=== PATIENT | male | born 1995 | race Caucasian/White ===

== ENCOUNTER 2020-11-09 12:53 | Inpatient (IN) | payer BC, SELFPAY ==
[2020-11-09 13:31] LABS: #Lymphocytes 0.8 thou/uL (1.20-3.40); #Monocytes 0.4 thou/uL (0.11-0.59); %Basophils 0.2 % (0.0-1.0); %Eosinophils 0.1 % (0.0-10.0); %Monocytes 5.1 % (0.0-10.0); %Neutrophils 83.7 % (42.0-75.0); Hemoglobin 14.3 g/dL (14.0-18.0); Mean Corpuscular HGB CONC 33.2 g/dL (32.0-36.0); Mean Corpuscular Hemoglobin 30.8 pg (27.0-31.0); Mean Platelet Volume 7.5 fL (7.4-10.4); Platelet Count 193 thou/uL (130-400); RBC Distribution Width 12.1 % (11.5-14.5); Red Blood Cell (RBC) Count 4.63 mill/uL (4.70-6.10); White Blood Cell (WBC) Count 7.2 thou/uL (4.8-10.8)
[2020-11-09] MEDS ORDERED: Iopamidol-370 76% 500 ML 1 ML ONE (13:53)
[2020-11-09 13:57] LABS: ALT (SGPT) 27 U/L (8-55); AST (SGOT) 43 U/L (5-34); Albumin 3.6 g/dL (3.5-5.0); Alkaline Phosphatase 43 U/L (40-110); Anion Gap 12 mmol/L (10-20); BUN (Urea Nitrogen) 13 mg/dL (8.9-20.6); Bilirubin, Total 0.5 mg/dL (0.2-1.2); Calc. Creatinine Clearance 0 mL/min (70-130); Calcium 8.1 mg/dL (7.8-10.44); Carbon Dioxide 30 mmol/L (22-29); Chloride 98 mmol/L (98-107); Glucose 138 mg/dL (70-105); Potassium 3.5 mmol/L (3.5-5.1); Protein, Total 6.6 g/dL (6.0-8.3); Sodium 136 mmol/L (136-145)
--- NOTE | 2020-11-09 14:40 | RAD ---
PORTABLE CHEST: HISTORY: COVID positive. States symptoms are getting worse. FINDINGS: Heart size within normal limits. Extensive bilateral lung infiltrates are present, more right-sided. IMPRESSION: Multifocal pneumonia consistent with COVID. POS: [place]
[2020-11-09] MEDS ORDERED: Dexamethasone 10 MG/ML VIAL ONE (14:56)
[2020-11-09] MEDS ORDERED: HYDROcodone/Acetaminophen 5/325 mg Tablet PO PRN (17:40)
[2020-11-09] MEDS ORDERED: Senokot S 8.6-50 MG TAB PO PRN (17:40)
[2020-11-09] MEDS ORDERED: Acetaminophen 325 MG TAB PO PRN (17:40)
[2020-11-09] MEDS ORDERED: Ondansetron ODT 4 MG TAB PO PRN (17:40)
[2020-11-09] MEDS ORDERED: Melatonin 3 MG TAB PO PRN (17:44)
--- NOTE | 2020-11-09 17:49 | CT ---
CT angiogram chest: 11/09/2020 COMPARISON: None HISTORY: Covid positive patient with worsening symptoms TECHNIQUE: Axial CT imaging at 2.5 mm intervals through the chest with IV contrast using CT angiogram protocol. Coronal and sagittal 3-D reformatted imaging obtained. FINDINGS: Partially visualized spleen is enlarged, measuring 14.3 cm in AP dimension. Imaged upper ab domen grossly unremarkable otherwise. No pleural, pericardial, or mediastinal fluid is noted. No axillary lymphadenopathy. There are enlarged mediastinal lymph nodes including a 1.2 cm prevascula r node, a superior mediastinal left paratracheal node measuring 1.6 cm, and subcarinal adenopathy measuring up to 1.2 cm. Motion artifact and suboptimal opacification limits detailed assessment of the pulmonary arterial vas culature. The distal pulmonary arterial branches are poorly assessed. No obvious central pulmonary arterial embolism. There is extensive severe multifocal peripheral and central groundglass alveolar opacity within both lungs diffusely highly suspicious for extensive bilateral Covid pneumonia. No endobronchial lesion is evident. No acute osseous abnormality. IMPRESSION: Severe extensive multifocal bilateral airspace disease concerning for prominent diffuse b ilateral Covid pneumonia. Evaluation for pulmonary arterial embolism is quite limited. No central pulmonary arterial embolism noted. Mediastinal adenopathy is noted, likely reactive in nature. Nonspe cific splenomegaly.
[2020-11-09 18:17] VITALS: BMI 46.7
[2020-11-09] MEDS: cefTRIAXone\\ROCEPHIN 1 GM in Sodium Chloride 0.9% 100 ML IVPB SCH (18:23)
--- NOTE | 2020-11-09 18:36 | HP ---
CHIEF COMPLAINT: Shortness of breath, cough. HISTORY OF PRESENT ILLNESS: A 25-year-old young obese male without significant past medical history, had COVID symptoms, started on November 01 and tested positive on . He got worsening of his hypoxia. Initially, he was tachycardic with pulse of 120. D-dimer is elevated at 0.7. Chest x-ray marked typical of COVID pneumonia with a multifocal bilateral infiltrate. Currently, CT angio is pending. He will be brought in for COVID management. REVIEW OF SYSTEMS: The patient had some subjective fevers since the . Otherwise, no chest pain. He has no nausea, vomiting, abdominal pain, constipation, diarrhea, hematuria, dysuria, hematochezia. Denies headache, tingling, numbness in his extremities. No blurriness. No polyuria or polydipsia. Rest of the review of systems are negative. PAST MEDICAL HISTORY: None. PAST SURGICAL HISTORY: None. ALLERGIES: HE HAS NO KNOWN DRUG ALLERGY. MEDICATIONS: None. SOCIAL HISTORY: The patient does not drink or smoke. FAMILY HISTORY: Noncontributory. PHYSICAL EXAMINATION: VITAL SIGNS: He is afebrile, normotensive. Sats around 95% with 3 L oxygen by nasal cannula. GENERAL: The patient is alert, oriented, but he is coughing quite a bit and he is not toxic looking. HEENT: Pupils are equal, round, and reactive to light. Anicteric. Mucous membranes moist. CARDIOVASCULAR: Regular rate and rhythm without murmurs, rubs, or gallops. LUNGS: Clear to auscultation bilaterally without wheezing, rales, or rhonchi. ABDOMEN: Soft, nontender, and protuberant, but good bowel sounds. EXTREMITIES: I did not appreciate any pitting edema or rash. NEUROLOGIC: No focal deficits. DIAGNOSTIC DATA: His CBC in the normal range. D-dimer 0.76. His chemistry panel; creatinine 0.93, bicarb is 30. Otherwise, rest of the CMP panel in the normal range. Chest x-ray, bilateral focal infiltrate. CT angiogram just showed up severe extensive multifocal bilateral airspace disease concerning for prominent bilateral COVID pneumonia. They are not able to visualize the pulmonary artery clearly; however, it appears that there is no embolism. Mediastinal adenopathy is noted. IMPRESSION AND PLAN: This is a 25-year-old obese male with a past medical history, presenting with: 1. Coronavirus disease with pneumonia. 2. Start him on Decadron, vitamins as well as zinc. Bronchodilators as needed. We will follow the inflammatory markers. Lovenox b.i.d. dose. I talked to the pharmacist regarding remdesivir. It is almost 9 days since his symptoms started. Please follow on that. Job ID: [id number] MTDD
[2020-11-09] MEDS: guaiFENesin 200 MG TAB PO SCH ×2 (18:53→22:41)
[2020-11-09] MEDS: Albuterol 200 PUFF (6.7GM INHALER) INH SCH (18:53)
[2020-11-09] MEDS ORDERED: REMDESIVIR (EUA) 200 MG in Sodium Chloride 0.9% 250 ML 210 ML IV SCH (20:00)
[2020-11-09] MEDS: Enoxaparin Sodium 40 MG/0.4 ML SYRINGE SC SCH (21:10)
[2020-11-09] MEDS: Montelukast Sodium 10 mg Tablet PO SCH (21:11)
[2020-11-10] MEDS: Albuterol 200 PUFF (6.7GM INHALER) INH SCH ×4 (00:39→18:11)
[2020-11-10] MEDS: guaiFENesin 200 MG TAB PO SCH ×6 (06:00→20:20)
[2020-11-10 06:52] LABS: #Lymphocytes 0.6 thou/uL (1.20-3.40); #Monocytes 0.5 thou/uL (0.11-0.59); %Eosinophils 0.1 % (0.0-10.0); %Lymphocytes 9.9 % (21.0-51.0); %Monocytes 7.7 % (0.0-10.0); %Neutrophils 82.3 % (42.0-75.0); Hemoglobin 14.2 g/dL (14.0-18.0); Mean Corpuscular HGB CONC 33.3 g/dL (32.0-36.0); Mean Corpuscular Hemoglobin 31.4 pg (27.0-31.0); Mean Corpuscular Volume 94.2 fL (78.0-98.0); Mean Platelet Volume 7.2 fL (7.4-10.4); Platelet Count 205 thou/uL (130-400); RBC Distribution Width 12.2 % (11.5-14.5); Red Blood Cell (RBC) Count 4.52 mill/uL (4.70-6.10)
[2020-11-10 07:07] LABS: Anion Gap 14 mmol/L (10-20); BUN (Urea Nitrogen) 13 mg/dL (8.9-20.6); Calc. Creatinine Clearance 385 mL/min (70-130); Calcium 8.1 mg/dL (7.8-10.44); Carbon Dioxide 27 mmol/L (22-29); Chloride 101 mmol/L (98-107); Glucose 130 mg/dL (70-105); Potassium 4.1 mmol/L (3.5-5.1); Sodium 138 mmol/L (136-145)
[2020-11-10] MEDS: Dexamethasone 4 mg/ml Vial SLOW IVP SCH (08:26)
[2020-11-10] MEDS: Cholecalciferol 1,000 UNITS (25 MCG) TAB PO SCH (08:29)
[2020-11-10] MEDS: Ascorbic Acid 500 mg Chewable Tablet PO SCH (08:29)
[2020-11-10] MEDS: Zinc Sulfate 220 MG CAP PO SCH (08:29)
[2020-11-10] MEDS: Enoxaparin Sodium 40 MG/0.4 ML SYRINGE SC SCH (08:30)
[2020-11-10] MEDS: Azithromycin 250 MG TAB PO SCH (08:30)
[2020-11-10] MEDS ORDERED: Ondansetron PF 4 MG/2 ML Vial IVP PRN (08:37)
[2020-11-10] MEDS ORDERED: Cepastat Lozenges 1 LOZ PO PRN (08:37)
[2020-11-10] MEDS ORDERED: Loratadine 10 MG TAB PO PRN (08:37)
[2020-11-10] MEDS ORDERED: Sodium Chloride 0.65% Nasal 44 ML BOT EA NARE PRN (08:37)
[2020-11-10] MEDS ORDERED: Loperamide HCl 2 MG CAP PO PRN (08:37)
[2020-11-10] MEDS ORDERED: Calcium Carbonate 500 MG ChewTAB PO PRN (08:37)
[2020-11-10] MEDS ORDERED: hydrALAZINE 20 MG/ML VIAL SLOW IVP PRN (08:37)
[2020-11-10] MEDS ORDERED: FLU VACC QS2020-21(6MOS UP)/PF 60 MCG/0.5 ML SYRINGE IM ONE (09:00)
--- NOTE | 2020-11-10 12:19 | PDOC.HOSPP ---
- Subjective Encounter Date: 11/10/20 Encounter Time: 09:00 Subjective: Patient was on facemask oxygen with 15 L and he was saturating only 85%, we have changed to high flow oxygen, initially patient was not liking high flow oxygen but now he agreed to stay on it - Objective Vital Signs & Weight: Vital Signs (12 hours) Pulse Ox 11/10/20 08:00 91 L Weight Weight 345 lb 0.3 oz I&O: 11/09/20 11/10/20 11/11/20 06:59 06:59 06:59 Intake Total 240 Output Total 600 Balance -600 240 Result Diagrams: 11/10/20 06:33 11/10/20 06:33 Radiology Reviewed by me: Yes EKG Reviewed by me: Yes Hospitalist ROS - Review of Systems Constitutional: reports: weakness, malaise Eyes: denies: pain, vision change, conjunctivae inflammation, eyelid inflammation, redness, other ENT: denies: ear pain, ear discharge, nose pain, nose discharge, nose congestion , mouth pain, mouth swelling, throat pain, throat swelling, other Respiratory: reports: cough, shortness of breath, SOB with excertion. denies: dry, hemoptysis, pleuritic pain, sputum, wheezing, other Cardiovascular: denies: chest pain, palpitations, orthopnea, paroxysmal noc. dyspnea, edema, light headedness, other Gastrointestinal: denies: nausea, vomiting, abdominal pain, diarrhea, constipation, melena, hematochezia, other Genitourinary: denies: dysuria, frequency, incontinence, hematuria, retention, other Musculoskeletal: denies: neck pain, shoulder pain, arm pain, back pain, hand pain, leg pain, foot pain, other Skin: denies: rash, lesions, coni, bruising, other - Medication Medications: Active Medications Generic Name Dose Route Start Last Admin Trade Name Freq PRN Reason Stop Dose Admin Acetaminophen 650 mg 11/09/20 17:40 11/09/20 18:23 Acetaminophen 325 Mg Tab PO 650 mg Q4H PRN Administration Headache/Fever/Mild Pain (1-3) Albuterol Sulfate 2 puff 11/09/20 19:00 11/10/20 08:30 Albuterol 200 Puff (6.7gm Inhaler) INH 2 puff [id number] JOHN Administration Ascorbic Acid 1,000 mg 11/10/20 09:00 11/10/20 08:29 Ascorbic Acid 500 Mg Chewable Tablet PO 1,000 mg DAILY JOHN Administration Azithromycin 500 mg 11/10/20 09:00 11/10/20 08:30 Azithromycin 250 Mg Tab PO 500 mg DAILY JOHN Administration Cholecalciferol 2,000 units 11/10/20 09:00 11/10/20 08:29 Cholecalciferol 1,000 Units (25 Mcg) Tab PO 2,000 units DAILY JOHN Administration Dexamethasone 6 mg 11/10/20 09:00 11/10/20 08:26 Dexamethasone 4 Mg/Ml Vial SLOW IVP 6 mg DAILY JOHN Administration Enoxaparin Sodium 40 mg 11/09/20 21:00 11/10/20 08:30 Enoxaparin Sodium 40 Mg/0.4 Ml Syringe SC 40 mg BID JOHN Administration Guaifenesin 400 mg 11/09/20 18:00 11/10/20 09:12 Guaifenesin 200 Mg Tab PO 11/11/20 18:01 400 mg Q4H JOHN Administration Ceftriaxone Sodium 1 gm/ 100 mls @ 200 mls/hr 11/09/20 18:00 11/09/20 18:23 Sodium Chloride IVPB 100 mls Q24HR JOHN Administration Montelukast Sodium 10 mg 11/09/20 21:00 11/09/20 21:11 Montelukast Sodium 10 Mg Tablet PO 10 mg QPM JOHN Administration Zinc Sulfate 220 mg 11/10/20 09:00 11/10/20 08:29 Zinc Sulfate 220 Mg Cap PO 220 mg DAILY JOHN Administration - Exam General Appearance: NAD, awake alert Eye: PERRL, anicteric sclera ENT: normocephalic atraumatic, no oropharyngeal lesions Neck: supple, symmetric, no JVD, no thyromegaly Heart: RRR, no murmur, no gallops, no rubs Respiratory - other findings: Morbid obesity limiting examination, air entry reduced at base, coarse ana Gastrointestinal: soft, non-tender, non-distended, normal bowel sounds Gastrointestinal - other findings: Morbid obesity noted Extremities: no cyanosis, no clubbing, no edema Skin: normal turgor, no lesions Neurological: no focal deficits Musculoskeletal: normal tone, normal strength Psychiatric: normal affect, normal behavior Hosp A/P (1) Acute respiratory failure due to COVID-19 Code(s): U07.1 - COVID-19; J96.00 - ACUTE RESPIRATORY FAILURE, UNSP W HYPOXIA OR HYPERCAPNIA Status: Acute (2) Pneumonia due to 2019 novel coronavirus Code(s): U07.1 - COVID-19; J12.82 - PNEUMONIA DUE TO CORONAVIRUS DISEASE 2019 Status: Acute (3) Morbid obesity with BMI of 45.0-49.9, adult Code(s): E66.01 - MORBID (SEVERE) OBESITY DUE TO EXCESS CALORIES; Z68.42 - BODY MASS INDEX [BMI] 45.0-49.9, ADULT Status: Chronic - Plan old records reviewed/req, plan discussed w/ family, respiratory therapy, DVT proph w/lovenox Continue remdesivir as per protocol Continue dexamethasone Continue vitamin supplementation Continue high flow oxygen Patient has high chances of worsening so we will closely monitor, will also consult pulmonology for evaluation I have updated patient's mother about his condition
--- NOTE | 2020-11-10 15:53 | CON ---
DATE OF CONSULTATION: 11/10/2020 CONSULTING PHYSICIAN: Daniel Dotson MD REASON FOR CONSULTATION: COVID-19 pneumonia. HISTORY OF PRESENT ILLNESS: Mr. Blanco is a 25-year-old male, who was hospitalized yesterday with increasing shortness of breath related to COVID-19 pneumonia. I believe, he had symptoms first on November 01, tested positive on November 02. His comorbid risk factors include obesity. PAST MEDICAL HISTORY: Unremarkable. PAST SURGICAL HISTORY: Unremarkable. ALLERGIES: NONE. MEDICATIONS: Prior to admission, none. SOCIAL HISTORY: He works for the [employer]. Does not smoke. Does not drink. FAMILY MEDICAL HISTORY: Unremarkable. REVIEW OF SYSTEMS: Remarkable for dry cough and fever. Otherwise, negative. PHYSICAL EXAMINATION: VITAL SIGNS: O2 saturation 89% on 50% high-flow oxygen; temperature 98.7, it has been as high as 103.0; pulse 88; and respirations 20. GENERAL: He is a morbidly obese male, in no acute distress. He speaks without much difficulty. HEENT: Unremarkable. NECK: No JVD. LUNGS: Inspiratory crackles bilaterally. CARDIAC: S1 and S2. Regular. ABDOMEN: Soft. EXTREMITIES: No edema. LABORATORY DATA: White blood cell count 6, hematocrit 42.5, and platelet count 205. D-dimer 0.52. Sodium 138, potassium 4.1, BUN 13, creatinine 0.6, and glucose 130. C-reactive protein 9.9. I have reviewed his CT and chest x-ray shows diffuse infiltrates. ASSESSMENT: 1. COVID-19 pneumonia. 2. Acute hypoxic respiratory failure. PLAN: 1. I have reviewed the orders. I agree with remdesivir, steroids. I would increase his anticoagulation to a more therapeutic dose. Eliquis would probably be a better choice. 2. Continue high-flow oxygen. 3. I would anticipate him being in the hospital for another week to 10 days. Job ID: [id number]
[2020-11-10] MEDS: cefTRIAXone\\ROCEPHIN 1 GM in Sodium Chloride 0.9% 100 ML IVPB SCH (18:11)
[2020-11-10] MEDS: Apixaban 5 MG TAB PO SCH (20:20)
[2020-11-10] MEDS: Montelukast Sodium 10 mg Tablet PO SCH (20:20)
[2020-11-10] MEDS: REMDESIVIR (EUA) 100 MG in Sodium Chloride 0.9% 250 ML 230 ML IV SCH (21:55)
[2020-11-11] MEDS: Zolpidem Tartrate 5 MG TAB PO PRN (00:12)
[2020-11-11] MEDS: Albuterol 200 PUFF (6.7GM INHALER) INH SCH ×4 (00:12→18:01)
[2020-11-11] MEDS: guaiFENesin 200 MG TAB PO SCH ×5 (01:32→17:54)
[2020-11-11 06:34] LABS: #Lymphocytes 0.7 thou/uL (1.20-3.40); #Monocytes 0.9 thou/uL (0.11-0.59); #Neutrophils 4.6 thou/uL (1.40-6.50); %Basophils 0.1 % (0.0-1.0); %Eosinophils 0.2 % (0.0-10.0); %Lymphocytes 11.2 % (21.0-51.0); %Monocytes 14.6 % (0.0-10.0); %Neutrophils 73.9 % (42.0-75.0); Hemoglobin 13.9 g/dL (14.0-18.0); Mean Corpuscular HGB CONC 33.7 g/dL (32.0-36.0); Mean Corpuscular Hemoglobin 31.3 pg (27.0-31.0); Mean Corpuscular Volume 93.1 fL (78.0-98.0); Mean Platelet Volume 7.5 fL (7.4-10.4); Platelet Count 276 thou/uL (130-400); RBC Distribution Width 11.9 % (11.5-14.5); Red Blood Cell (RBC) Count 4.45 mill/uL (4.70-6.10); White Blood Cell (WBC) Count 6.3 thou/uL (4.8-10.8)
[2020-11-11 06:59] LABS: ALT (SGPT) 53 U/L (8-55); AST (SGOT) 46 U/L (5-34); Albumin 3.4 g/dL (3.5-5.0); Alkaline Phosphatase 38 U/L (40-110); Anion Gap 15 mmol/L (10-20); BUN (Urea Nitrogen) 18 mg/dL (8.9-20.6); Bilirubin, Total 0.4 mg/dL (0.2-1.2); Calc. Creatinine Clearance 348 mL/min (70-130); Calcium 8.1 mg/dL (7.8-10.44); Carbon Dioxide 30 mmol/L (22-29); Chloride 101 mmol/L (98-107); Globulin 2.8 g/dL (2.4-3.5); Glucose 134 mg/dL (70-105); Potassium 4.1 mmol/L (3.5-5.1); Protein, Total 6.2 g/dL (6.0-8.3); Sodium 142 mmol/L (136-145)
[2020-11-11] MEDS: Ascorbic Acid 500 mg Chewable Tablet PO SCH (08:42)
[2020-11-11] MEDS: Zinc Sulfate 220 MG CAP PO SCH (08:42)
[2020-11-11] MEDS: Dexamethasone 4 mg/ml Vial SLOW IVP SCH (08:42)
[2020-11-11] MEDS: Apixaban 5 MG TAB PO SCH ×2 (08:43→20:05)
[2020-11-11] MEDS: Azithromycin 250 MG TAB PO SCH (08:43)
[2020-11-11] MEDS: Cholecalciferol 1,000 UNITS (25 MCG) TAB PO SCH (08:43)
--- NOTE | 2020-11-11 09:13 | PRG ---
DATE OF SERVICE: 11/11/2020 SUBJECTIVE: He remains on high-flow oxygen, but is stable and has no acute complaints. OBJECTIVE: VITAL SIGNS: Temperature 98.4, pulse 84, respirations 17, sat 94% on 50% O2, blood pressure 129/86. GENERAL: He is morbidly obese, but in no distress. HEENT: Unremarkable. NECK: No JVD. LUNGS: No crackles. CARDIAC: S1, S2. Regular. ABDOMEN: Soft. EXTREMITIES: No edema. LABORATORY DATA: White blood cell count 6.3, hematocrit 41, and platelet count 276. Sodium 142, potassium 4.1, BUN 18, creatinine 0.7, glucose 134. ASSESSMENT: 1. COVID-19 pneumonia. 2. Morbid obesity. PLAN: I think he is getting better. His remdesivir will be done in a couple of days. I will continue with the steroids and anticoagulation. Please call if the patient's situation worsens. Otherwise, I will be available as needed. Job ID: [id number]
--- NOTE | 2020-11-11 11:10 | PDOC.HOSPP ---
- Subjective Encounter Date: 11/11/20 Encounter Time: 09:00 Subjective: Patient seen and examined bedside today, no overnight event, no new complaint, patient is on high flow oxygen, - Objective Vital Signs & Weight: Vital Signs (12 hours) Temp Pulse Resp BP Pulse Ox 11/11/20 07:30 98.4 F 84 17 129/86 94 L 11/11/20 04:00 98.4 F 87 24 H 129/81 94 L 11/11/20 00:15 98.8 F 86 20 125/80 92 L Weight Weight 345 lb 0.3 oz I&O: 11/10/20 11/11/20 11/12/20 06:59 06:59 06:59 Intake Total 240 Output Total 600 800 Balance -600 -560 Result Diagrams: 11/11/20 06:16 11/11/20 06:16 Hospitalist ROS - Review of Systems Constitutional: reports: weakness Eyes: denies: pain, vision change, conjunctivae inflammation, eyelid inflammation, redness, other ENT: denies: ear pain, ear discharge, nose pain, nose discharge, nose congestion, mouth pain, mouth swelling, throat pain, throat swelling, other Respiratory: reports: cough, shortness of breath, SOB with excertion. denies: dry, hemoptysis, pleuritic pain, sputum, wheezing, other Cardiovascular: denies: chest pain, palpitations, orthopnea, paroxysmal noc. dyspnea, edema, light headedness, other Gastrointestinal: denies: nausea, vomiting, abdominal pain, diarrhea, constipation, melena, hematochezia, other Genitourinary: denies: dysuria, frequency, incontinence, hematuria, retention, other Musculoskeletal: denies: neck pain, shoulder pain, arm pain, back pain, hand pain, leg pain, foot pain, other - Medication Medications: Active Medications Generic Name Dose Route Start Last Admin Trade Name Freq PRN Reason Stop Dose Admin Acetaminophen 650 mg 11/09/20 17:40 11/09/20 18:23 Acetaminophen 325 Mg Tab PO 650 mg Q4H PRN Administration Headache/Fever/Mild Pain (1-3) Albuterol Sulfate 2 puff 11/09/20 19:00 11/11/20 05:45 Albuterol 200 Puff (6.7gm Inhaler) INH 2 puff [id number] JOHN Administration Apixaban 5 mg 11/10/20 21:00 11/11/20 08:43 Apixaban 5 Mg Tab PO 5 mg BID JOHN Administration Ascorbic Acid 1,000 mg 11/10/20 09:00 11/11/20 08:42 Ascorbic Acid 500 Mg Chewable Tablet PO 1,000 mg DAILY JOHN Administration Azithromycin 500 mg 11/10/20 09:00 11/11/20 08:43 Azithromycin 250 Mg Tab PO 500 mg DAILY JOHN Administration Cholecalciferol 2,000 units 11/10/20 09:00 11/11/20 08:43 Cholecalciferol 1,000 Units (25 Mcg) Tab PO 2,000 units DAILY JOHN Administration Dexamethasone 6 mg 11/10/20 09:00 11/11/20 08:42 Dexamethasone 4 Mg/Ml Vial SLOW IVP 6 mg DAILY JOHN Administration Guaifenesin 400 mg 11/09/20 18:00 11/11/20 09:01 Guaifenesin 200 Mg Tab PO 11/11/20 18:01 400 mg Q4H JOHN Administration Ceftriaxone Sodium 1 gm/ 100 mls @ 200 mls/hr 11/09/20 18:00 11/10/20 18:11 Sodium Chloride IVPB 100 mls Q24HR JOHN Administration Remdesivir 100 mg/ Sodium 250 mls @ 250 mls/hr 11/10/20 20:00 11/10/20 21:55 Chloride IV 11/13/20 20:59 250 mls 2000 JOHN Administration Montelukast Sodium 10 mg 11/09/20 21:00 11/10/20 20:20 Montelukast Sodium 10 Mg Tablet PO 10 mg QPM JOHN Administration Zinc Sulfate 220 mg 11/10/20 09:00 11/11/20 08:42 Zinc Sulfate 220 Mg Cap PO 220 mg DAILY JOHN Administration Zolpidem Tartrate 5 mg 11/10/20 08:37 11/11/20 00:12 Zolpidem Tartrate 5 Mg Tab PO 5 mg HSPRN PRN Administration Insomnia - Exam General Appearance: NAD, awake alert Eye: PERRL, anicteric sclera ENT: normocephalic atraumatic, no oropharyngeal lesions Neck: supple, symmetric, no JVD, no thyromegaly Heart: RRR, no murmur, no gallops, no rubs Respiratory: no wheezes, no ronchi Respiratory - other findings: Bilateral reduced air entry, though morbid obesity limiting examination Gastrointestinal: soft, non-tender, non-distended, normal bowel sounds Gastrointestinal - other findings: Morbid obesity noted Extremities: no cyanosis, no clubbing, no edema Skin: normal turgor, no lesions Neurological: no focal deficits Musculoskeletal: normal tone, normal strength, no muscle wasting Psychiatric: normal affect, normal behavior, A&O x 3 Hosp A/P (1) Acute respiratory failure due to COVID-19 Code(s): U07.1 - COVID-19; J96.00 - ACUTE RESPIRATORY FAILURE, UNSP W HYPOXIA OR HYPERCAPNIA Status: Acute (2) Pneumonia due to 2019 novel coronavirus Code(s): U07.1 - COVID-19; J12.82 - PNEUMONIA DUE TO CORONAVIRUS DISEASE 2019 Status: Acute (3) Morbid obesity with BMI of 45.0-49.9, adult Code(s): E66.01 - MORBID (SEVERE) OBESITY DUE TO EXCESS CALORIES; Z68.42 - BODY MASS INDEX [BMI] 45.0-49.9, ADULT Status: Chronic - Plan old records reviewed/req, continue antibiotics, respiratory therapy Continue remdesivir as per protocol Continue dexamethasone Continue vitamin supplementation Continue high flow oxygen Pulmonary recommendation appreciated, Continue Eliquis to prevent thromboembolic disorder given patient is a high risk Monitor inflammatory markers
[2020-11-11] MEDS: Benzonatate 100 MG CAP PO PRN ×2 (13:04→20:05)
[2020-11-11] MEDS: GUAIFENESIN SF SOLN 200 MG/10 ML UDCUP PO PRN ×2 (17:53→20:50)
[2020-11-11] MEDS: cefTRIAXone\\ROCEPHIN 1 GM in Sodium Chloride 0.9% 100 ML IVPB SCH (17:53)
[2020-11-11] MEDS ORDERED: guaiFENesin 200 MG TAB PO PRN (18:07)
[2020-11-11] MEDS: Montelukast Sodium 10 mg Tablet PO SCH (20:05)
[2020-11-11] MEDS: REMDESIVIR (EUA) 100 MG in Sodium Chloride 0.9% 250 ML 230 ML IV SCH (21:18)
[2020-11-12] MEDS: Albuterol 200 PUFF (6.7GM INHALER) INH SCH ×4 (00:02→18:16)
[2020-11-12] MEDS: Zolpidem Tartrate 5 MG TAB PO PRN ×2 (00:02→20:21)
[2020-11-12 06:34] LABS: ALT (SGPT) 58 U/L (8-55); AST (SGOT) 43 U/L (5-34); Albumin 3.2 g/dL (3.5-5.0); Alkaline Phosphatase 36 U/L (40-110); Bilirubin, Direct 0.2 mg/dL (0.1-0.3); Bilirubin, Total 0.4 mg/dL (0.2-1.2); Protein, Total 5.9 g/dL (6.0-8.3)
[2020-11-12] MEDS: Apixaban 5 MG TAB PO SCH ×2 (08:12→20:21)
[2020-11-12] MEDS: Benzonatate 100 MG CAP PO PRN (08:12)
[2020-11-12] MEDS: Dexamethasone 4 mg/ml Vial SLOW IVP SCH (08:12)
[2020-11-12] MEDS: Zinc Sulfate 220 MG CAP PO SCH (08:13)
[2020-11-12] MEDS: Azithromycin 250 MG TAB PO SCH (08:13)
[2020-11-12] MEDS: Ascorbic Acid 500 mg Chewable Tablet PO SCH (08:13)
[2020-11-12] MEDS: Cholecalciferol 1,000 UNITS (25 MCG) TAB PO SCH (08:13)
--- NOTE | 2020-11-12 11:11 | PDOC.HOSPP ---
- Subjective Encounter Date: 11/12/20 Encounter Time: 09:15 Subjective: Patient seen and examined bedside today, overall patient is doing better today, he has no subjective complaints, no fever, - Objective Vital Signs & Weight: Vital Signs (12 hours) Temp Pulse Resp BP Pulse Ox 11/12/20 04:00 98.3 F 81 22 H 123/81 94 L 11/12/20 00:00 98.8 F 77 22 H 109/60 95 Weight Weight 345 lb 0.3 oz I&O: 11/11/20 11/12/20 11/13/20 06:59 06:59 06:59 Intake Total 240 Output Total 800 600 Balance -560 -600 Result Diagrams: 11/11/20 06:16 11/11/20 06:16 Additional Labs: Accuchecks 11/11/20 15:49 POC Glucose 136 H Hospitalist ROS - Review of Systems Constitutional: reports: weakness. denies: fever, chills, sweats, malaise, other Respiratory: reports: shortness of breath, SOB with excertion. denies: cough, dry, hemoptysis, pleuritic pain, sputum, wheezing, other Cardiovascular: denies: chest pain, palpitations, orthopnea, paroxysmal noc. dyspnea, edema, light headedness, other Gastrointestinal: denies: nausea, vomiting, abdominal pain, diarrhea, constipation, melena, hematochezia, other Genitourinary: denies: dysuria, frequency, incontinence, hematuria, retention, other Musculoskeletal: denies: neck pain, shoulder pain, arm pain, back pain, hand pain, leg pain, foot pain, other - Medication Medications: Active Medications Generic Name Dose Route Start Last Admin Trade Name Freq PRN Reason Stop Dose Admin Acetaminophen 650 mg 11/09/20 17:40 11/09/20 18:23 Acetaminophen 325 Mg Tab PO 650 mg Q4H PRN Administration Headache/Fever/Mild Pain (1-3) Albuterol Sulfate 2 puff 11/09/20 19:00 11/12/20 05:55 Albuterol 200 Puff (6.7gm Inhaler) INH 2 puff [id number] JOHN Administration Apixaban 5 mg 11/10/20 21:00 11/12/20 08:12 Apixaban 5 Mg Tab PO 5 mg BID JOHN Administration Ascorbic Acid 1,000 mg 11/10/20 09:00 11/12/20 08:13 Ascorbic Acid 500 Mg Chewable Tablet PO 1,000 mg DAILY JOHN Administration Azithromycin 500 mg 11/10/20 09:00 11/12/20 08:13 Azithromycin 250 Mg Tab PO 500 mg DAILY JOHN Administration Benzonatate 100 mg 11/10/20 08:37 11/12/20 08:12 Benzonatate 100 Mg Cap PO 100 mg Q6H PRN Administration Cough Cholecalciferol 2,000 units 11/10/20 09:00 11/12/20 08:13 Cholecalciferol 1,000 Units (25 Mcg) Tab PO 2,000 units DAILY JOHN Administration Dexamethasone 6 mg 11/10/20 09:00 11/12/20 08:12 Dexamethasone 4 Mg/Ml Vial SLOW IVP 6 mg DAILY JOHN Administration Guaifenesin 200 mg 11/10/20 08:37 11/11/20 20:50 Diabetic Tussin 200 Mg/10 Ml Udcup PO 200 mg Q4H PRN Administration Cough Ceftriaxone Sodium 1 gm/ 100 mls @ 200 mls/hr 11/09/20 18:00 11/11/20 17:53 Sodium Chloride IVPB 100 mls Q24HR JOHN Administration Remdesivir 100 mg/ Sodium 250 mls @ 250 mls/hr 11/10/20 20:00 11/11/20 21:18 Chloride IV 11/13/20 20:59 250 mls 2000 JOHN Administration Montelukast Sodium 10 mg 11/09/20 21:00 11/11/20 20:05 Montelukast Sodium 10 Mg Tablet PO 10 mg QPM JOHN Administration Zinc Sulfate 220 mg 11/10/20 09:00 11/12/20 08:13 Zinc Sulfate 220 Mg Cap PO 220 mg DAILY JOHN Administration Zolpidem Tartrate 5 mg 11/10/20 08:37 11/12/20 00:02 Zolpidem Tartrate 5 Mg Tab PO 5 mg HSPRN PRN Administration Insomnia - Exam General Appearance: NAD, awake alert Eye: PERRL, anicteric sclera ENT: normocephalic atraumatic, no oropharyngeal lesions Neck: supple, symmetric, no JVD, no thyromegaly Heart: RRR, no murmur, no gallops, no rubs Respiratory: no wheezes, no ronchi, rales Respiratory - other findings: Bilateral coarse breath sounds noted, basilar rales noted Gastrointestinal: soft, non-tender, non-distended, normal bowel sounds Gastrointestinal - other findings: Morbid obesity limiting examination Extremities: no cyanosis, no clubbing, no edema Skin: normal turgor, no lesions Neurological: no focal deficits Musculoskeletal: normal tone, normal strength Psychiatric: normal affect, normal behavior, A&O x 3 Hosp A/P (1) Acute respiratory failure due to COVID-19 Code(s): U07.1 - COVID-19; J96.00 - ACUTE RESPIRATORY FAILURE, UNSP W HYPOXIA OR HYPERCAPNIA Status: Acute (2) Pneumonia due to 2019 novel coronavirus Code(s): U07.1 - COVID-19; J12.82 - PNEUMONIA DUE TO CORONAVIRUS DISEASE 2019 Status: Acute (3) Morbid obesity with BMI of 45.0-49.9, adult Code(s): E66.01 - MORBID (SEVERE) OBESITY DUE TO EXCESS CALORIES; Z68.42 - BODY MASS INDEX [BMI] 45.0-49.9, ADULT Status: Chronic - Plan old records reviewed/req, continue antibiotics, respiratory therapy Continue remdesivir as per protocol Continue dexamethasone Continue vitamin supplementation Continue high flow oxygen Overall patient is doing better, wean off oxygen as tolerated Continue Eliquis to prevent thromboembolic disorder given patient is a high risk Monitor inflammatory markers
[2020-11-12] MEDS: cefTRIAXone\\ROCEPHIN 1 GM in Sodium Chloride 0.9% 100 ML IVPB SCH (17:36)
[2020-11-12] MEDS: REMDESIVIR (EUA) 100 MG in Sodium Chloride 0.9% 250 ML 230 ML IV SCH (19:31)
[2020-11-12] MEDS: Montelukast Sodium 10 mg Tablet PO SCH (20:21)
[2020-11-13] MEDS: Albuterol 200 PUFF (6.7GM INHALER) INH SCH ×5 (00:29→18:48)
[2020-11-13 07:27] LABS: ALT (SGPT) 52 U/L (8-55); AST (SGOT) 27 U/L (5-34); Albumin 3.1 g/dL (3.5-5.0); Alkaline Phosphatase 36 U/L (40-110); Bilirubin, Direct 0.2 mg/dL (0.1-0.3); Bilirubin, Total 0.4 mg/dL (0.2-1.2); Protein, Total 5.7 g/dL (6.0-8.3)
[2020-11-13] MEDS: Apixaban 5 MG TAB PO SCH ×2 (08:37→20:27)
[2020-11-13] MEDS: Cholecalciferol 1,000 UNITS (25 MCG) TAB PO SCH (08:38)
[2020-11-13] MEDS: Ascorbic Acid 500 mg Chewable Tablet PO SCH (08:38)
[2020-11-13] MEDS: Azithromycin 250 MG TAB PO SCH (08:38)
[2020-11-13] MEDS: Dexamethasone 4 mg/ml Vial SLOW IVP SCH (08:38)
[2020-11-13] MEDS: Zinc Sulfate 220 MG CAP PO SCH (08:38)
--- NOTE | 2020-11-13 10:29 | PDOC.HOSPP ---
- Subjective Encounter Date: 11/13/20 Encounter Time: 09:30 Subjective: Patient seen and examined. No new complaints. No overnight events - Objective Vital Signs & Weight: Vital Signs (12 hours) Temp Pulse Resp BP Pulse Ox 11/13/20 08:40 96 11/13/20 07:29 98.2 F 60 16 110/72 96 11/13/20 05:49 98.1 F 65 18 119/70 97 11/13/20 00:41 98.1 F 67 18 110/69 96 Weight Weight 345 lb 0.3 oz I&O: 11/12/20 11/13/20 11/14/20 06:59 06:59 06:59 Intake Total 480 Output Total 600 Balance -600 480 Result Diagrams: 11/11/20 06:16 11/11/20 06:16 Hospitalist ROS - Review of Systems Constitutional: reports: weakness. denies: fever, chills, sweats, malaise, other Eyes: denies: pain, vision change, conjunctivae inflammation, eyelid inflammation, redness, other ENT: denies: ear pain, ear discharge, nose pain, nose discharge, nose congestion, mouth pain, mouth swelling, throat pain, throat swelling, other Respiratory: reports: cough, shortness of breath, SOB with excertion. denies: dry, hemoptysis, pleuritic pain, sputum, wheezing, other Cardiovascular: denies: chest pain, palpitations, orthopnea, paroxysmal noc. dys pnea, edema, light headedness, other Gastrointestinal: denies: nausea, vomiting, abdominal pain, diarrhea, constipation, melena, hematochezia, other Genitourinary: denies: dysuria, frequency, incontinence, hematuria, retention, other Musculoskeletal: denies: neck pain, shoulder pain, arm pain, back pain, hand pain, leg pain, foot pain, other - Medication Medications: Active Medications Generic Name Dose Route Start Last Admin Trade Name Freq PRN Reason Stop Dose Admin Acetaminophen 650 mg 11/09/20 17:40 11/09/20 18:23 Acetaminophen 325 Mg Tab PO 650 mg Q4H PRN Administration Headache/Fever/Mild Pain (1-3) Albuterol Sulfate 2 puff 11/09/20 19:00 11/13/20 06:09 Albuterol 200 Puff (6.7gm Inhaler) INH 2 puff [id number] JOHN Administration Apixaban 5 mg 11/10/20 21:00 11/13/20 08:37 Apixaban 5 Mg Tab PO 5 mg BID JOHN Administration Ascorbic Acid 1,000 mg 11/10/20 09:00 11/13/20 08:38 Ascorbic Acid 500 Mg Chewable Tablet PO 1,000 mg DAILY JOHN Administration Azithromycin 500 mg 11/10/20 09:00 11/13/20 08:38 Azithromycin 250 Mg Tab PO 500 mg DAILY JOHN Administration Benzonatate 100 mg 11/10/20 08:37 11/12/20 08:12 Benzonatate 100 Mg Cap PO 100 mg Q6H PRN Administration Cough Cholecalciferol 2,000 units 11/10/20 09:00 11/13/20 08:38 Cholecalciferol 1,000 Units (25 Mcg) Tab PO 2,000 units DAILY JOHN Administration Dexamethasone 6 mg 11/10/20 09:00 11/13/20 08:38 Dexamethasone 4 Mg/Ml Vial SLOW IVP 6 mg DAILY JOHN Administration Guaifenesin 200 mg 11/10/20 08:37 11/11/20 20:50 Diabetic Tussin 200 Mg/10 Ml Udcup PO 200 mg Q4H PRN Administration Cough Ceftriaxone Sodium 1 gm/ 100 mls @ 200 mls/hr 11/09/20 18:00 11/12/20 17:36 Sodium Chloride IVPB 100 mls Q24HR JOHN Administration Remdesivir 100 mg/ Sodium 250 mls @ 250 mls/hr 11/10/20 20:00 11/12/20 19:31 Chloride IV 11/13/20 20:59 250 mls 2000 JOHN Administration Montelukast Sodium 10 mg 11/09/20 21:00 11/12/20 20:21 Montelukast Sodium 10 Mg Tablet PO 10 mg QPM JOHN Administration Zinc Sulfate 220 mg 11/10/20 09:00 11/13/20 08:38 Zinc Sulfate 220 Mg Cap PO 220 mg DAILY JOHN Administration Zolpidem Tartrate 5 mg 11/10/20 08:37 11/12/20 20:21 Zolpidem Tartrate 5 Mg Tab PO 5 mg HSPRN PRN Administration Insomnia - Exam General Appearance: NAD, awake alert Eye: PERRL, anicteric sclera ENT: normocephalic atraumatic, no oropharyngeal lesions Neck: supple, symmetric, no JVD, no thyromegaly Heart: RRR, no murmur, no gallops, no rubs Respiratory: no wheezes, no rales, no ronchi Gastrointestinal: soft, non-tender, non-distended, normal bowel sounds Extremities: no cyanosis, no clubbing, no edema Skin: normal turgor, no lesions Neurological: no focal deficits Musculoskeletal: normal tone, normal strength Psychiatric: normal affect, normal behavior, A&O x 3 Hosp A/P (1) Acute respiratory failure due to COVID-19 Code(s): U07.1 - COVID-19; J96.00 - ACUTE RESPIRATORY FAILURE, UNSP W HYPOXIA OR HYPERCAPNIA Status: Acute (2) Pneumonia due to 2019 novel coronavirus Code(s): U07.1 - COVID-19; J12.82 - PNEUMONIA DUE TO CORONAVIRUS DISEASE 2019 Status: Acute (3) Morbid obesity with BMI of 45.0-49.9, adult Code(s): E66.01 - MORBID (SEVERE) OBESITY DUE TO EXCESS CALORIES; Z68.42 - BODY MASS INDEX [BMI] 45.0-49.9, ADULT Status: Chronic - Plan old records reviewed/req, plan discussed w/ family Continue remdesivir as per protocol Continue dexamethasone Continue vitamin supplementation Continue high flow oxygen Overall patient is doing better, wean off oxygen as tolerated Continue Eliquis to prevent thromboembolic disorder given patient is a high risk Monitor inflammatory markers Discussed with mother
[2020-11-13] MEDS: cefTRIAXone\\ROCEPHIN 1 GM in Sodium Chloride 0.9% 100 ML IVPB SCH (17:28)
[2020-11-13] MEDS: Benzonatate 100 MG CAP PO PRN (20:27)
[2020-11-13] MEDS: Montelukast Sodium 10 mg Tablet PO SCH (20:27)
[2020-11-13] MEDS: REMDESIVIR (EUA) 100 MG in Sodium Chloride 0.9% 250 ML 230 ML IV SCH (20:27)
[2020-11-13] MEDS: Zolpidem Tartrate 5 MG TAB PO PRN (22:08)
[2020-11-14] MEDS: Albuterol 200 PUFF (6.7GM INHALER) INH SCH ×4 (01:47→18:29)
[2020-11-14] MEDS: Dexamethasone 4 mg/ml Vial SLOW IVP SCH (08:23)
[2020-11-14] MEDS: Zinc Sulfate 220 MG CAP PO SCH (08:23)
[2020-11-14] MEDS: Cholecalciferol 1,000 UNITS (25 MCG) TAB PO SCH (08:23)
[2020-11-14] MEDS: Apixaban 5 MG TAB PO SCH ×2 (08:23→20:37)
[2020-11-14] MEDS: Ascorbic Acid 500 mg Chewable Tablet PO SCH (08:23)
[2020-11-14] MEDS: Azithromycin 250 MG TAB PO SCH (08:23)
[2020-11-14 09:05] LABS: #Eosinphils 0.1 thou/uL (0.0-0.7); #Lymphocytes 2.2 thou/uL (1.20-3.40); #Monocytes 1.4 thou/uL (0.11-0.59); #Neutrophils 6.7 thou/uL (1.40-6.50); %Basophils 0.2 % (0.0-1.0); %Eosinophils 0.8 % (0.0-10.0); %Lymphocytes 21.1 % (21.0-51.0); %Monocytes 13.5 % (0.0-10.0); %Neutrophils 64.5 % (42.0-75.0); Mean Corpuscular HGB CONC 32.9 g/dL (32.0-36.0); Mean Corpuscular Hemoglobin 30.8 pg (27.0-31.0); Mean Corpuscular Volume 93.6 fL (78.0-98.0); Mean Platelet Volume 7.5 fL (7.4-10.4); Platelet Count 430 thou/uL (130-400); RBC Distribution Width 12.1 % (11.5-14.5); Red Blood Cell (RBC) Count 4.86 mill/uL (4.70-6.10); White Blood Cell (WBC) Count 10.4 thou/uL (4.8-10.8)
[2020-11-14 09:29] LABS: ALT (SGPT) 53 U/L (8-55); AST (SGOT) 23 U/L (5-34); Albumin 3.5 g/dL (3.5-5.0); Alkaline Phosphatase 42 U/L (40-110); Anion Gap 14 mmol/L (10-20); BUN (Urea Nitrogen) 15 mg/dL (8.9-20.6); Bilirubin, Total 0.5 mg/dL (0.2-1.2); CRP (Inflammatory) 0.65 mg/dL (= or < 0.5); Calc. Creatinine Clearance 339 mL/min (70-130); Calcium 8.1 mg/dL (7.8-10.44); Carbon Dioxide 27 mmol/L (22-29); Chloride 106 mmol/L (98-107); Globulin 3.1 g/dL (2.4-3.5); Glucose 80 mg/dL (70-105); Potassium 4.1 mmol/L (3.5-5.1); Protein, Total 6.6 g/dL (6.0-8.3); Sodium 143 mmol/L (136-145)
--- NOTE | 2020-11-14 11:16 | PDOC.HOSPP ---
- Subjective Encounter Date: 11/14/20 Encounter Time: 09:45 Subjective: Patient seen and examined. No new complaints. No overnight events - Objective Vital Signs & Weight: Vital Signs (12 hours) Temp Pulse Resp BP BP Pulse Ox 11/14/20 08:25 95 11/14/20 07:13 98.0 F 61 18 113/78 95 11/14/20 05:49 97.8 F 73 20 128/84 96 Weight Weight 345 lb 0.3 oz I&O: 11/13/20 11/14/20 11/15/20 06:59 06:59 06:59 Intake Total 1560 240 Balance 1560 240 Result Diagrams: 11/14/20 08:57 11/14/20 08:57 Hospitalist ROS - Review of Systems Constitutional: reports: weakness Eyes: denies: pain, vision change, conjunctivae inflammation, eyelid inflammation, redness, other ENT: denies: ear pain, ear discharge, nose pain, nose discharge, nose congestion, mouth pain, mouth swelling, throat pain, throat swelling, other Respiratory: reports: shortness of breath, SOB with excertion. denies: cough, dry, hemoptysis, pleuritic pain, sputum, wheezing, other Cardiovascular: denies: chest pain, palpitations, orthopnea, paroxysmal noc. dyspnea, edema, light headedness, other Gastrointestinal: denies: nausea, vomiting, abdominal pain, diarrhea, constipation, melena, hematochezia, other Genitourinary: denies: dysuria, frequency, incontinence, hematuria, retention, other Musculoskeletal: denies: neck pain, shoulder pain, arm pain, back pain, hand pain, leg pain, foot pain, other - Medication Medications: Active Medications Generic Name Dose Route Start Last Admin Trade Name Freq PRN Reason Stop Dose Admin Acetaminophen 650 mg 11/09/20 17:40 11/09/20 18:23 Acetaminophen 325 Mg Tab PO 650 mg Q4H PRN Administration Headache/Fever/Mild Pain (1-3) Albuterol Sulfate 2 puff 11/09/20 19:00 11/14/20 05:32 Albuterol 200 Puff (6.7gm Inhaler) INH 2 puff [id number] JOHN Administration Apixaban 5 mg 11/10/20 21:00 11/14/20 08:23 Apixaban 5 Mg Tab PO 5 mg BID JOHN Administration Ascorbic Acid 1,000 mg 11/10/20 09:00 11/14/20 08:23 Ascorbic Acid 500 Mg Chewable Tablet PO 1,000 mg DAILY JOHN Administration Azithromycin 500 mg 11/10/20 09:00 11/14/20 08:23 Azithromycin 250 Mg Tab PO 500 mg DAILY JOHN Administration Benzonatate 100 mg 11/10/20 08:37 11/13/20 20:27 Benzonatate 100 Mg Cap PO 100 mg Q6H PRN Administration Cough Cholecalciferol 2,000 units 11/10/20 09:00 11/14/20 08:23 Cholecalciferol 1,000 Units (25 Mcg) Tab PO 2,000 units DAILY JOHN Administration Dexamethasone 6 mg 11/10/20 09:00 11/14/20 08:23 Dexamethasone 4 Mg/Ml Vial SLOW IVP 6 mg DAILY JOHN Administration Guaifenesin 200 mg 11/10/20 08:37 11/11/20 20:50 Diabetic Tussin 200 Mg/10 Ml Udcup PO 200 mg Q4H PRN Administration Cough Ceftriaxone Sodium 1 gm/ 100 mls @ 200 mls/hr 11/09/20 18:00 11/13/20 17:28 Sodium Chloride IVPB 100 mls Q24HR JOHN Administration Montelukast Sodium 10 mg 11/09/20 21:00 11/13/20 20:27 Montelukast Sodium 10 Mg Tablet PO 10 mg QPM JOHN Administration Zinc Sulfate 220 mg 11/10/20 09:00 11/14/20 08:23 Zinc Sulfate 220 Mg Cap PO 220 mg DAILY JOHN Administration Zolpidem Tartrate 5 mg 11/10/20 08:37 11/13/20 22:08 Zolpidem Tartrate 5 Mg Tab PO 5 mg HSPRN PRN Administration Insomnia - Exam General Appearance: NAD, awake alert Eye: PERRL, anicteric sclera ENT: normocephalic atraumatic, no oropharyngeal lesions Neck: supple, symmetric, no JVD, no thyromegaly Heart: RRR, no murmur, no gallops, no rubs Respiratory - other findings: Bilateral basilar coarse breath sound, reduced air entry, Gastrointestinal: soft, non-tender, non-distended, normal bowel sounds Extremities: no cyanosis, no clubbing, no edema Skin: normal turgor, no lesions Neurological: no focal deficits Musculoskeletal: normal tone, normal strength Psychiatric: normal affect, normal behavior Hosp A/P (1) Acute respiratory failure due to COVID-19 Code(s): U07.1 - COVID-19; J96.00 - ACUTE RESPIRATORY FAILURE, UNSP W HYPOXIA OR HYPERCAPNIA Status: Acute (2) Pneumonia due to 2019 novel coronavirus Code(s): U07.1 - COVID-19; J12.82 - PNEUMONIA DUE TO CORONAVIRUS DISEASE 2019 Status: Acute (3) Morbid obesity with BMI of 45.0-49.9, adult Code(s): E66.01 - MORBID (SEVERE) OBESITY DUE TO EXCESS CALORIES; Z68.42 - BODY MASS INDEX [BMI] 45.0-49.9, ADULT Status: Chronic - Plan old records reviewed/req, continue antibiotics, respiratory therapy Continue remdesivir as per protocol Continue dexamethasone Continue vitamin supplementation Continue high flow oxygen Overall patient is doing better, wean off oxygen as tolerated Continue Eliquis to prevent thromboembolic disorder given patient is a high risk Monitor inflammatory markers Discussed with mother Today I will give him 1 dose of Lasix 20 mg IV Weight loss education given
[2020-11-14] MEDS ORDERED: Furosemide 20 MG/2 ML VIAL SLOW IVP SCH (11:30)
[2020-11-14] MEDS: cefTRIAXone\\ROCEPHIN 1 GM in Sodium Chloride 0.9% 100 ML IVPB SCH (17:13)
[2020-11-14] MEDS: Montelukast Sodium 10 mg Tablet PO SCH (20:37)
[2020-11-14] MEDS: Zolpidem Tartrate 5 MG TAB PO PRN (23:01)
[2020-11-15] MEDS: Albuterol 200 PUFF (6.7GM INHALER) INH SCH ×4 (02:04→18:58)
[2020-11-15] MEDS: Azithromycin 250 MG TAB PO SCH (10:13)
[2020-11-15] MEDS: Apixaban 5 MG TAB PO SCH ×2 (10:13→20:06)
[2020-11-15] MEDS: Cholecalciferol 1,000 UNITS (25 MCG) TAB PO SCH (10:14)
[2020-11-15] MEDS: Zinc Sulfate 220 MG CAP PO SCH (10:14)
[2020-11-15] MEDS: Ascorbic Acid 500 mg Chewable Tablet PO SCH (10:14)
[2020-11-15] MEDS: Dexamethasone 4 mg/ml Vial SLOW IVP SCH (10:15)
--- NOTE | 2020-11-15 11:44 | PDOC.HOSPP ---
- Subjective Encounter Date: 11/15/20 Encounter Time: 09:00 Subjective: Patient seen and examined bedside today, no overnight event, no new complaint, still on high flow oxygen - Objective Vital Signs & Weight: Vital Signs (12 hours) Temp Pulse Resp BP BP Pulse Ox 11/15/20 07:15 97.8 F 73 20 109/65 98 11/15/20 04:50 97.7 F 66 22 H 109/67 97 11/15/20 00:00 98.7 F 69 22 H 104/64 95 Weight Weight 345 lb 0.3 oz I&O: 11/14/20 11/15/20 11/16/20 06:59 06:59 06:59 Intake Total 1560 720 Output Total 300 Balance 1560 420 Result Diagrams: 11/14/20 08:57 11/14/20 08:57 Hospitalist ROS - Review of Systems ENT: denies: ear pain, ear discharge, nose pain, nose discharge, nose congestion, mouth pain, mouth swelling, throat pain, throat swelling, other Respiratory: reports: shortness of breath, SOB with excertion. denies: cough, dry, hemoptysis, pleuritic pain, sputum, wheezing, other Cardiovascular: denies: chest pain, palpitations, orthopnea, paroxysmal noc. dyspnea, edema, light headedness, other Gastrointestinal: denies: nausea, vomiting, abdominal pain, diarrhea, constipation, melena, hematochezia, other Genitourinary: denies: dysuria, frequency, incontinence, hematuria, retention, other Musculoskeletal: denies: neck pain, shoulder pain, arm pain, back pain, hand pain, leg pain, foot pain, other Skin: denies: rash, lesions, coni, bruising, other - Medication Medications: Active Medications Generic Name Dose Route Start Last Admin Trade Name Freq PRN Reason Stop Dose Admin Acetaminophen 650 mg 11/09/20 17:40 11/09/20 18:23 Acetaminophen 325 Mg Tab PO 650 mg Q4H PRN Administration Headache/Fever/Mild Pain (1-3) Albuterol Sulfate 2 puff 11/09/20 19:00 11/15/20 06:00 Albuterol 200 Puff (6.7gm Inhaler) INH 2 puff [id number] JOHN Administration Apixaban 5 mg 11/10/20 21:00 11/15/20 10:13 Apixaban 5 Mg Tab PO 5 mg BID JOHN Administration Ascorbic Acid 1,000 mg 11/10/20 09:00 11/15/20 10:14 Ascorbic Acid 500 Mg Chewable Tablet PO 1,000 mg DAILY JOHN Administration Azithromycin 500 mg 11/10/20 09:00 11/15/20 10:13 Azithromycin 250 Mg Tab PO 500 mg DAILY JOHN Administration Benzonatate 100 mg 11/10/20 08:37 11/13/20 20:27 Benzonatate 100 Mg Cap PO 100 mg Q6H PRN Administration Cough Cholecalciferol 2,000 units 11/10/20 09:00 11/15/20 10:14 Cholecalciferol 1,000 Units (25 Mcg) Tab PO 2,000 units DAILY JOHN Administration Dexamethasone 6 mg 11/10/20 09:00 11/15/20 10:15 Dexamethasone 4 Mg/Ml Vial SLOW IVP 6 mg DAILY JOHN Administration Guaifenesin 200 mg 11/10/20 08:37 11/11/20 20:50 Diabetic Tussin 200 Mg/10 Ml Udcup PO 200 mg Q4H PRN Administration Cough Ceftriaxone Sodium 1 gm/ 100 mls @ 200 mls/hr 11/09/20 18:00 11/14/20 17:13 Sodium Chloride IVPB 100 mls Q24HR JOHN Administration Montelukast Sodium 10 mg 11/09/20 21:00 11/14/20 20:37 Montelukast Sodium 10 Mg Tablet PO 10 mg QPM JOHN Administration Zinc Sulfate 220 mg 11/10/20 09:00 11/15/20 10:14 Zinc Sulfate 220 Mg Cap PO 220 mg DAILY JOHN Administration Zolpidem Tartrate 5 mg 11/10/20 08:37 11/14/20 23:01 Zolpidem Tartrate 5 Mg Tab PO 5 mg HSPRN PRN Administration Insomnia - Exam General Appearance: NAD, awake alert Eye: PERRL, anicteric sclera ENT: normocephalic atraumatic, no oropharyngeal lesions Neck: supple, symmetric, no JVD, no thyromegaly Heart: RRR, no murmur, no gallops, no rubs Respiratory: no wheezes, no rales, no ronchi Gastrointestinal: soft, non-tender, non-distended, normal bowel sounds Gastrointestinal - other findings: Morbid obesity limiting examination Extremities: no cyanosis, no clubbing, no edema Skin: normal turgor, no lesions Neurological: no focal deficits Musculoskeletal: normal tone, normal strength Psychiatric: normal affect, normal behavior Hosp A/P (1) Acute respiratory failure due to COVID-19 Code(s): U07.1 - COVID-19; J96.00 - ACUTE RESPIRATORY FAILURE, UNSP W HYPOXIA OR HYPERCAPNIA Status: Acute (2) Pneumonia due to 2019 novel coronavirus Code(s): U07.1 - COVID-19; J12.82 - PNEUMONIA DUE TO CORONAVIRUS DISEASE 2019 Status: Acute (3) Morbid obesity with BMI of 45.0-49.9, adult Code(s): E66.01 - MORBID (SEVERE) OBESITY DUE TO EXCESS CALORIES; Z68.42 - BODY MASS INDEX [BMI] 45.0-49.9, ADULT Status: Chronic - Plan old records reviewed/req Patient has completed remdesivir as per protocol We will continue dexamethasone for total 10 days Tomorrow we will discontinue Rocephin as well and discontinue azithromycin today Continue vitamin supplementation Overall patient is doing better, wean off oxygen as tolerated Continue Eliquis to prevent thromboembolic disorder given patient is a high risk Monitor inflammatory markers If his oxygen requirement goes below 3 L then will consider discharge
[2020-11-15] MEDS: cefTRIAXone\\ROCEPHIN 1 GM in Sodium Chloride 0.9% 100 ML IVPB SCH (16:57)
[2020-11-15] MEDS: Montelukast Sodium 10 mg Tablet PO SCH (20:06)
[2020-11-15] MEDS: Zolpidem Tartrate 5 MG TAB PO PRN (22:37)
[2020-11-16] MEDS: Albuterol 200 PUFF (6.7GM INHALER) INH SCH ×4 (02:08→18:41)
[2020-11-16 07:17] LABS: ALT (SGPT) 42 U/L (8-55); AST (SGOT) 15 U/L (5-34); Albumin 3.2 g/dL (3.5-5.0); Alkaline Phosphatase 44 U/L (40-110); Anion Gap 13 mmol/L (10-20); BUN (Urea Nitrogen) 16 mg/dL (8.9-20.6); Bilirubin, Total 0.5 mg/dL (0.2-1.2); Calc. Creatinine Clearance 363 mL/min (70-130); Calcium 8.1 mg/dL (7.8-10.44); Carbon Dioxide 23 mmol/L (22-29); Chloride 105 mmol/L (98-107); Globulin 2.7 g/dL (2.4-3.5); Glucose 88 mg/dL (70-105); Potassium 4.4 mmol/L (3.5-5.1); Protein, Total 5.9 g/dL (6.0-8.3); Sodium 137 mmol/L (136-145)
[2020-11-16] MEDS: Cholecalciferol 1,000 UNITS (25 MCG) TAB PO SCH (07:54)
[2020-11-16] MEDS: Zinc Sulfate 220 MG CAP PO SCH (07:54)
[2020-11-16] MEDS: Ascorbic Acid 500 mg Chewable Tablet PO SCH (07:54)
[2020-11-16] MEDS: Dexamethasone 4 mg/ml Vial SLOW IVP SCH (07:55)
[2020-11-16] MEDS: Apixaban 5 MG TAB PO SCH ×2 (07:55→20:45)
[2020-11-16 08:00] LABS: #Eosinphils 0.2 thou/uL (0.0-0.7); #Lymphocytes 2.1 thou/uL (1.20-3.40); #Monocytes 1.1 thou/uL (0.11-0.59); #Neutrophils 8.1 thou/uL (1.40-6.50); %Basophils 0.2 % (0.0-1.0); %Eosinophils 1.5 % (0.0-10.0); %Lymphocytes 18.1 % (21.0-51.0); %Neutrophils 70.3 % (42.0-75.0); Band 3 % (5-11); Eosinophils 2 % (0-10); Hemoglobin 14.5 g/dL (14.0-18.0); Lymphocytes 21 % (21-51); MDiff Complete? YES; Mean Corpuscular HGB CONC 33.2 g/dL (32.0-36.0); Mean Corpuscular Hemoglobin 30.9 pg (27.0-31.0); Mean Platelet Volume 7.7 fL (7.4-10.4); Metamyelocyte 1 % (0-0); Monocytes 10 % (0-10); Neutrophil 61 % (42-75); Platelet Count 433 thou/uL (130-400); Platelet Morphology Comment Appears Increased; Polychromasia SLIGHT = 2-3 cells (100X) (0-2/hpf); RBC Distribution Width 12.1 % (11.5-14.5); Reactive Lymphocytes 2 % (0-10); Red Blood Cell (RBC) Count 4.69 mill/uL (4.70-6.10); White Blood Cell (WBC) Count 11.5 thou/uL (4.8-10.8)
--- NOTE | 2020-11-16 13:44 | PDOC.HOSPP ---
- Subjective Encounter Date: 11/16/20 Encounter Time: 10:00 Subjective: Patient seen and examined bedside today, no overnight event, no new complaint, patient is still on high flow oxygen - Objective Vital Signs & Weight: Vital Signs (12 hours) Temp Pulse Resp BP BP Pulse Ox 11/16/20 08:00 98.1 F 62 22 H 109/65 98 11/16/20 05:43 97.4 F L 60 18 109/73 100 Weight Weight 345 lb 0.3 oz I&O: 11/15/20 11/16/20 11/17/20 06:59 06:59 06:59 Intake Total 720 Output Total 300 Balance 420 Result Diagrams: 11/16/20 06:00 11/16/20 06:00 Hospitalist ROS - Review of Systems Constitutional: reports: weakness. denies: fever, chills, sweats, malaise, other ENT: denies: ear pain, ear discharge, nose pain, nose discharge, nose congestion, mouth pain, mouth swelling, throat pain, throat swelling, other Respiratory: reports: shortness of breath, SOB with excertion. denies: cough, d ry, hemoptysis, pleuritic pain, sputum, wheezing, other Cardiovascular: denies: chest pain, palpitations, orthopnea, paroxysmal noc. dyspnea, edema, light headedness, other Gastrointestinal: denies: nausea, vomiting, abdominal pain, diarrhea, constip ation, melena, hematochezia, other Genitourinary: denies: dysuria, frequency, incontinence, hematuria, retention, other Musculoskeletal: denies: neck pain, shoulder pain, arm pain, back pain, hand pain, leg pain, foot pain, other - Medication Medications: Active Medications Generic Name Dose Route Start Last Admin Trade Name Freq PRN Reason Stop Dose Admin Acetaminophen 650 mg 11/09/20 17:40 11/09/20 18:23 Acetaminophen 325 Mg Tab PO 650 mg Q4H PRN Administration Headache/Fever/Mild Pain (1-3) Albuterol Sulfate 2 puff 11/09/20 19:00 11/16/20 12:41 Albuterol 200 Puff (6.7gm Inhaler) INH 2 puff [id number] JOHN Administration Apixaban 5 mg 11/10/20 21:00 11/16/20 07:55 Apixaban 5 Mg Tab PO 5 mg BID JOHN Administration Ascorbic Acid 1,000 mg 11/10/20 09:00 11/16/20 07:54 Ascorbic Acid 500 Mg Chewable Tablet PO 1,000 mg DAILY JOHN Administration Benzonatate 100 mg 11/10/20 08:37 11/13/20 20:27 Benzonatate 100 Mg Cap PO 100 mg Q6H PRN Administration Cough Cholecalciferol 2,000 units 11/10/20 09:00 11/16/20 07:54 Cholecalciferol 1,000 Units (25 Mcg) Tab PO 2,000 units DAILY JOHN Administration Dexamethasone 6 mg 11/10/20 09:00 11/16/20 07:55 Dexamethasone 4 Mg/Ml Vial SLOW IVP 6 mg DAILY JOHN Administration Guaifenesin 200 mg 11/10/20 08:37 11/11/20 20:50 Diabetic Tussin 200 Mg/10 Ml Udcup PO 200 mg Q4H PRN Administration Cough Ceftriaxone Sodium 1 gm/ 100 mls @ 200 mls/hr 11/09/20 18:00 11/15/20 16:57 Sodium Chloride IVPB 100 mls Q24HR JOHN Administration Montelukast Sodium 10 mg 11/09/20 21:00 11/15/20 20:06 Montelukast Sodium 10 Mg Tablet PO 10 mg QPM JOHN Administration Zinc Sulfate 220 mg 11/10/20 09:00 11/16/20 07:54 Zinc Sulfate 220 Mg Cap PO 220 mg DAILY JOHN Administration Zolpidem Tartrate 5 mg 11/10/20 08:37 11/15/20 22:37 Zolpidem Tartrate 5 Mg Tab PO 5 mg HSPRN PRN Administration Insomnia - Exam General Appearance: NAD, awake alert Eye: PERRL, anicteric sclera ENT: normocephalic atraumatic, no oropharyngeal lesions Neck: supple, symmetric, no JVD, no thyromegaly Heart: RRR, no murmur, no gallops, no rubs Respiratory: no wheezes, no rales, no ronchi Respiratory - other findings: Bilateral reduced air entry Gastrointestinal: soft, non-tender, non-distended, normal bowel sounds Gastrointestinal - other findings: Morbid obesity limiting examination Extremities: no cyanosis, no clubbing, no edema Skin: normal turgor, no lesions Neurological: no focal deficits Musculoskeletal: normal tone, normal strength Psychiatric: normal affect, normal behavior Hosp A/P (1) Acute respiratory failure due to COVID-19 Code(s): U07.1 - COVID-19; J96.00 - ACUTE RESPIRATORY FAILURE, UNSP W HYPOXIA OR HYPERCAPNIA Status: Acute (2) Pneumonia due to 2019 novel coronavirus Code(s): U07.1 - COVID-19; J12.82 - PNEUMONIA DUE TO CORONAVIRUS DISEASE 2019 Status: Acute (3) Morbid obesity with BMI of 45.0-49.9, adult Code(s): E66.01 - MORBID (SEVERE) OBESITY DUE TO EXCESS CALORIES; Z68.42 - BODY MASS INDEX [BMI] 45.0-49.9, ADULT Status: Chronic - Plan old records reviewed/req Patient has completed remdesivir as per protocol We will continue dexamethasone for total 10 days Discontinue Rocephin y Continue vitamin supplementation Overall patient is doing better, wean off oxygen as tolerated Continue Eliquis to prevent thromboembolic disorder given patient is a high risk Monitor inflammatory markers If his oxygen requirement goes below 3 L then will consider discharge
[2020-11-16] MEDS: Montelukast Sodium 10 mg Tablet PO SCH (20:45)
[2020-11-16] MEDS: Zolpidem Tartrate 5 MG TAB PO PRN (21:54)
[2020-11-17] MEDS: Albuterol 200 PUFF (6.7GM INHALER) INH SCH ×4 (00:11→19:02)
[2020-11-17] MEDS: Zinc Sulfate 220 MG CAP PO SCH (08:21)
[2020-11-17] MEDS: Apixaban 5 MG TAB PO SCH (08:21)
[2020-11-17] MEDS: Cholecalciferol 1,000 UNITS (25 MCG) TAB PO SCH (08:21)
[2020-11-17] MEDS: Ascorbic Acid 500 mg Chewable Tablet PO SCH (08:21)
[2020-11-17] MEDS: Dexamethasone 4 mg/ml Vial SLOW IVP SCH (08:21)
[2020-11-17 11:32] VITALS: TEMP 98
--- NOTE | 2020-11-17 13:28 | PDOC.DS.DS ---
Provider - Provider Date of Admission: 11/09/20 16:18 Date of Discharge: 11/17/20 Admitting Provider: Maggi Freeman MD Consultations: Pulmonary (Dr. Vega) Primary Care Physician: NO PCP PROVIDER Course - Hospital Course Hospital Course: Discharge diagnosis: 1. Acute hypoxic respiratory failure 2. COVID-19 pneumonia 3. Morbid obesity 4. Hypoalbuminemia Hospital course: Patient is a pleasant 25-year-old gentleman who was admitted to the hospital on November 09, 2020 for acute hypoxic respiratory failure secondary to COVID-19 pneumonia. He was treated with dexamethasone, remdesivir, vitamin C and zinc. He was also treated with high flow oxygen, eventually transitioned to oxygen by nasal cannula. CT angiogram of the chest showed multifocal pneumonia but was inconclusive for pulmonary embolism. Because of his increased risk for pulmonary embolism, he was started on apixaban. He is advised to follow-up with primary care provider to decide regarding further continuation of apixaban. Arrangements are being made for home oxygen prior to discharge. Discharge destination: Home Total amount of time spent coordinating this discharge: 32 minutes Resuscitation Status: 11/10/20 12:27 Resuscitation Status Routine Resuscitation Status: FULL: Full Resuscitation - Labs Lab Results: 11/16/20 06:00 11/16/20 06:00 Abnormal Lab Results - Last 48 hrs 11/16/20 06:00: Serum Total Protein 5.9 L, Albumin 3.2 L 11/16/20 06:00: WBC 11.5 H, RBC 4.69 L, Plt Count 433 H, Band Neuts % (Manual) 3 L, Lymphocytes % 18.1 L, Neutrophils # 8.1 H, Monocytes # 1.1 H, Plt Morphology Comment Appears Increased H - Physical Exam Vitals: Vital Signs (12 hours) Temp Pulse Resp BP Pulse Ox 11/17/20 11:27 98 F 66 18 86/54 L 97 11/17/20 08:00 98 11/17/20 07:35 97.7 F 59 L 19 89/55 L 98 11/17/20 05:09 97.6 F 66 18 94/60 97 Weight Admit Weight 345 lb 0.32 oz Weight 345 lb 0.3 oz Physical Exam: The patient was seen and examined on the day of discharge. Patient denies chest pain or shortness of breath. Vital signs are stable. S1 and S2 are heard. Lungs are clear to auscultation bilaterally. Plan - Discharge Medications Prescriptions: Dexamethasone 6 mg PO DAILY #3 tablet Apixaban [Eliquis] 5 mg PO BID #28 tab Ascorbic Acid [Vitamin C] 1,000 mg PO DAILY #3 tablet Zinc Sulfate [Zinc-220] 220 mg PO DAILY #3 capsule Home Medications: Medication Instructions Recorded Confirmed Type Apixaban [Eliquis] 5 mg PO BID #28 tab 11/17/20 Rx Ascorbic Acid [Vitamin C] 1,000 mg PO DAILY #3 tablet 11/17/20 Rx Dexamethasone 6 mg PO DAILY #3 tablet 11/17/20 Rx Zinc Sulfate [Zinc-220] 220 mg PO DAILY #3 capsule 11/17/20 Rx Allergies: No Known Allergies Allergy (Unverified 11/09/20 17:54) - Discharge Instructions Discharge Instructions:: Follow-up with primary care provider to decide if you need further anticoagulation. Activity:: Activity as Tolerated Nourishment:: Heart Healthy Diet - Follow up Plan Referrals: PROVIDER,NO PCP [Primary Care Provider] - 3 Days Disposition: HOME Quality - Care Measures CORE MEASURES:: N/A
[2020-11-17 16:35] VITALS: BP 116/78
== END 2020-11-17 19:20 | disposition home or self-care (01) | DRG 177 ==
LOC: ERS 12:53 → T4-B 16:18
PROVIDERS: ADMIT Internal Medicine; ATTEND Internal Medicine
PROC: 8E0ZXY6 Isolation (ICD-10-PCS; principal; 2020-11-09)
PROC: XW033E5 Introduction of Remdesivir Anti-infective into Peripheral Vein, Percutaneous Approach, New Technology Group 5 (ICD-10-PCS; 2020-11-09)
DX: U07.1 COVID-19 (principal); J96.01 Acute respiratory failure with hypoxia; J12.82 Pneumonia due to coronavirus disease 2019; Z68.42 Body mass index [BMI] 45.0-49.9, adult; Z23 Encounter for immunization; E66.01 Morbid (severe) obesity due to excess calories; E88.09 Other disorders of plasma-protein metabolism, not elsewhere classified; J45.909 Unspecified asthma, uncomplicated; F90.9 Attention-deficit hyperactivity disorder, unspecified type; F41.9 Anxiety disorder, unspecified; F32.9 Major depressive disorder, single episode, unspecified
CPT/HCPCS: 36415; 36416; 71045; 71275; 80048; 80053; 80076; 82728; 85025; 85379; 86140; 90471; 90662; 96374; G0008; J0696; J1100; J1650; J1940; J3490; J7050; Q9967